=== PATIENT | female | born 1960 | race African-American/Black ===

== ENCOUNTER 2023-04-06 02:36 | Observation (INO) | payer MEDICARE, OTHER ==
[2023-04-06 03:20] LABS: #Eosinphils 0.2 thou/uL (0.0-0.7); #Monocytes 0.8 thou/uL (0.11-0.59); #Neutrophils 4.9 thou/uL (1.40-6.50); %Basophils 0.3 % (0.0-1.0); %Eosinophils 2.3 % (0.0-10.0); %Monocytes 7.3 % (0.0-10.0); %Neutrophils 47.6 % (42.0-75.0); Hemoglobin 12.4 g/dL (12.0-16.0); Mean Corpuscular HGB CONC 32.2 g/dL (32.0-36.0); Mean Corpuscular Hemoglobin 27.6 pg (27.0-31.0); Mean Corpuscular Volume 85.6 fl (78.0-98.0); Mean Platelet Volume 9.4 fL (7.4-10.4); Platelet Count 281 10x3/uL (130-400); RBC Distribution Width 13.2 % (11.5-14.5); White Blood Cell (WBC) Count 10.3 10x3/uL (4.8-10.8)
[2023-04-06] MEDS ORDERED: Aspirin Chewable 81 MG TAB ONE (03:36)
[2023-04-06] MEDS ORDERED: Nitroglycerin 2% Ointment 1 INCH/1 GM Packet ONE (03:36)
[2023-04-06 03:42] LABS: ALT (SGPT) 7 U/L (8-55); AST (SGOT) 13 U/L (5-34); Albumin 3.9 g/dL (3.5-5.0); Alkaline Phosphatase 97 U/L (40-110); Anion Gap 13 mmol/L (10-20); BUN (Urea Nitrogen) 11 mg/dL (9.8-20.1); Bilirubin, Total 0.2 mg/dL (0.2-1.2); CK (CPK) 77 U/L (29-168); Calc. Creatinine Clearance 0 mL/min (70-130); Calcium 9.6 mg/dL (7.8-10.44); Carbon Dioxide 23 mmol/L (22-29); Chloride 101 mmol/L (98-107); Estimated GFR 64; Globulin 3.2 g/dL (2.4-3.5); Glucose 102 mg/dL (70-105); Lipase 9 U/L (8-78); Potassium 3.6 mmol/L (3.5-5.1); Protein, Total 7.1 g/dL (6.0-8.3); Sodium 133 mmol/L (136-145)
[2023-04-06] MEDS ORDERED: Ondansetron PF 4 MG/2 ML Vial IVP PRN (04:59)
[2023-04-06] MEDS ORDERED: Acetaminophen 325 MG TAB PO PRN (04:59)
[2023-04-06] MEDS ORDERED: Ondansetron ODT 4 MG TAB PO PRN (04:59)
[2023-04-06] MEDS ORDERED: Acetaminophen 650 MG Suppository PR PRN (04:59)
[2023-04-06] MEDS ORDERED: Nitroglycerin 0.4 MG TAB (25 Tab Bottle) SL PRN (04:59)
[2023-04-06] MEDS ORDERED: Morphine 2 MG/ML VIAL SLOW IVP PRN (05:52)
[2023-04-06] MEDS ORDERED: Pantoprazole 40 MG VIAL ONE (06:09)
[2023-04-06 06:38] LABS: Troponin I 0.013 ng/mL (< 0.028)
[2023-04-06 08:36] VITALS: BMI 43.5
[2023-04-06] MEDS ORDERED: Non-Formulary Item 1 EACH (Acetaminophen With Codeine [Acetaminophen-Cod #4 Tablet] 1 EAC PO PRN (08:48)
[2023-04-06] MEDS ORDERED: Cyclobenzaprine 10 MG TAB PO PRN (08:48)
[2023-04-06] MEDS ORDERED: Acetaminophen/Codeine 30-300mg Tablet PO PRN (08:57)
[2023-04-06] MEDS ORDERED: Non-Formulary Item 1 EACH (Gabapentin [Gabapentin] 800 MG Tablet) PO SCH (09:00)
[2023-04-06] MEDS: Gabapentin 400 MG CAP PO SCH ×3 (11:47→19:35)
[2023-04-06] MEDS: Venlafaxine 75 MG TAB PO SCH (11:48)
[2023-04-06] MEDS: Pantoprazole 40 MG VIAL IVP SCH (11:48)
[2023-04-06] MEDS: Aspirin Chewable 81 MG TAB PO SCH (11:48)
[2023-04-06] MEDS: Amlodipine 10 MG TAB PO SCH (11:48)
[2023-04-06] MEDS: Levothyroxine 175 MCG TAB PO SCH (11:48)
[2023-04-06 12:03] LABS: Troponin I Less than 0.010 ng/mL (< 0.028)
[2023-04-06] MEDS ORDERED: Regadenoson 0.4 MG/5 ML SYRINGE ONE (14:47)
[2023-04-06] MEDS ORDERED: Atorvastatin Calcium 40 MG TAB PO SCH (21:00)
[2023-04-07 05:27] LABS: Anion Gap 10 mmol/L (10-20); BUN (Urea Nitrogen) 12 mg/dL (9.8-20.1); Calc. Creatinine Clearance 122 mL/min (70-130); Calcium 9.5 mg/dL (7.8-10.44); Carbon Dioxide 29 mmol/L (22-29); Chloride 103 mmol/L (98-107); Estimated GFR 58; Glucose 108 mg/dL (70-105); Potassium 4.1 mmol/L (3.5-5.1); Sodium 138 mmol/L (136-145)
[2023-04-07] MEDS: Gabapentin 400 MG CAP PO SCH ×2 (08:15→16:12)
[2023-04-07] MEDS: Levothyroxine 175 MCG TAB PO SCH (08:15)
[2023-04-07] MEDS: Amlodipine 10 MG TAB PO SCH (08:15)
[2023-04-07] MEDS: Aspirin Chewable 81 MG TAB PO SCH (08:15)
[2023-04-07] MEDS: Venlafaxine 75 MG TAB PO SCH (08:15)
[2023-04-07] MEDS: Pantoprazole 40 MG VIAL IVP SCH (08:16)
[2023-04-07] MEDS ORDERED: Ipratropium/Albuterol 3 ML NEB NEB PRN (11:32)
[2023-04-07] MEDS ORDERED: Ipratropium/Albuterol 3 ML NEB NEB SCH (12:00)
[2023-04-07 12:06] VITALS: BP 104/63; TEMP 97.9
== END 2023-04-07 17:03 | disposition home health service (06) ==
LOC: ERS 02:36 → ERHOLD 04:23 → EDBD 04:23 → 2SW 07:56
PROVIDERS: ADMIT Student in an Organized Health Care Education/Training Program; ATTEND Family Medicine
DX: R07.9 Chest pain, unspecified (principal); J45.909 Unspecified asthma, uncomplicated; I10 Essential (primary) hypertension; K21.9 Gastro-esophageal reflux disease without esophagitis; E87.1 Hypo-osmolality and hyponatremia; E78.5 Hyperlipidemia, unspecified; E03.9 Hypothyroidism, unspecified; I89.0 Lymphedema, not elsewhere classified; Z79.82 Long term (current) use of aspirin; Z79.899 Other long term (current) drug therapy; Z90.710 Acquired absence of both cervix and uterus; Z79.890 Hormone replacement therapy
CPT/HCPCS: 71045; 78452; 80048; 80053; 82550; 83690; 83880; 84484 ×2; 85025; 93005; 93017; 94640; 94760; 96374; 99285; A9500; 36415; 96376; C9113; G0378; J2785; J7620

== ENCOUNTER 2024-10-24 13:36 | Emergency (ER) | payer MEDICARE | END 2024-10-24 16:20 | disposition home or self-care (01) | LOC: ERS 13:36 | DX: R05.1 Acute cough (principal); R06.2 Wheezing; I10 Essential (primary) hypertension | CPT/HCPCS: 71045; 87428 ==

== ENCOUNTER 2024-11-21 13:18 | Emergency (ER) | payer MEDICARE ==
[2024-11-21 13:46] LABS: #Basophils 0.04 10x3/uL (0.0-0.2); %Basophils 0.5 % (0.0-1.0); %Eosinophils 2.5 % (0.0-10.0); %Lymphocytes 47.6 % (21.0-51.0); %Monocytes 10.6 % (0.0-10.0); %Neutrophils 38.6 % (42.0-75.0); Hematocrit 36.5 % (36.0-47.0); Hemoglobin 11.9 g/dL (12.0-16.0); Mean Corpuscular HGB CONC 32.6 g/dL (32.0-36.0); Mean Corpuscular Hemoglobin 27.6 pg (27.0-31.0); Mean Corpuscular Volume 84.7 fL (78.0-98.0); Mean Platelet Volume 8.9 fL (7.4-10.4); Platelet Count 253 10x3/uL (130-400); RBC Distribution Width 14.2 % (11.5-14.5); Red Blood Cell (RBC) Count 4.31 mill/uL (4.20-5.40)
[2024-11-21 14:10] LABS: ALT (SGPT) Less than 7 U/L (Less than 34); AST (SGOT) 19 U/L (11-34); Albumin 3.6 g/dL (3.1-4.5); Alkaline Phosphatase 112 U/L (40-110); Anion Gap 16 mmol/L (10-20); BUN (Urea Nitrogen) 12 mg/dL (9.8-20.1); Bilirubin, Total 0.3 mg/dL (0.3-1.2); Calc. Creatinine Clearance 0 mL/min (70-130); Carbon Dioxide 23 mmol/L (23-31); Chloride 103 mmol/L (98-107); Estimated GFR 63; Globulin 3.5 g/dL (2.4-3.5); Glucose 100 mg/dL (80-115); Potassium 3.5 mmol/L (3.5-5.1); Protein, Total 7.1 g/dL (5.8-8.1); Sodium 138 mmol/L (136-145)
[2024-11-21 14:13] LABS: Troponin I 0.014 ng/mL (< 0.028)
[2024-11-21] MEDS ORDERED: methylPREDNISolone Sod Succ/PF 125 MG/2 ML VIAL ONE (15:52)
[2024-11-21] MEDS ORDERED: Ipratropium/Albuterol 3 ML NEB ONE (16:02)
== END 2024-11-21 17:00 | disposition home or self-care (01) ==
LOC: ERS 13:18
DX: J45.901 Unspecified asthma with (acute) exacerbation (principal); R07.2 Precordial pain; I10 Essential (primary) hypertension; E03.9 Hypothyroidism, unspecified; E78.5 Hyperlipidemia, unspecified; Z79.899 Other long term (current) drug therapy; Z98.890 Other specified postprocedural states
CPT/HCPCS: 71045; 80053; 84484; 85025; 85379; 87428; 93005; 93971; 94640; 94760; 96374; 99285; J2919; 36415; J7620

== ENCOUNTER 2025-06-01 09:02 | Emergency (ER) | payer MEDICARE, OTHER ==
[2025-06-01 11:19] LABS: #Basophils 0.03 10x3/uL (0.0-0.2); #Eosinophils 0.09 10x3/uL (0.0-0.7); #Monocytes 0.65 10x3/uL (0.11-0.59); #Neutrophils 4.70 10x3/uL (1.40-6.50); %Basophils 0.3 % (0.0-1.0); %Eosinophils 1.0 % (0.0-10.0); %Lymphocytes 36.1 % (21.0-51.0); %Monocytes 7.6 % (0.0-10.0); %Neutrophils 54.8 % (42.0-75.0); Hematocrit 37.7 % (36.0-47.0); Hemoglobin 12.0 g/dL (12.0-16.0); Mean Corpuscular Hemoglobin 27.2 pg (27.0-31.0); Mean Corpuscular Volume 85.5 fL (78.0-98.0); Platelet Count 284 10x3/uL (130-400); Red Blood Cell (RBC) Count 4.41 mill/uL (4.20-5.40); White Blood Cell (WBC) Count 8.59 10x3/uL (4.8-10.8)
[2025-06-01 11:53] LABS: ALT (SGPT) 9 U/L (Less than 34); AST (SGOT) 21 U/L (11-34); Albumin 3.6 g/dL (3.1-4.5); Alkaline Phosphatase 85 U/L (40-110); Anion Gap 12 mmol/L (10-20); BUN (Urea Nitrogen) 15 mg/dL (9.8-20.1); Bilirubin, Total 0.3 mg/dL (0.3-1.2); Calc. Creatinine Clearance 0 mL/min (70-130); Calcium 8.6 mg/dL (7.8-10.44); Carbon Dioxide 26 mmol/L (23-31); Chloride 105 mmol/L (98-107); Globulin 3.4 g/dL (2.4-3.5); Glucose 102 mg/dL (80-115); Potassium 3.9 mmol/L (3.5-5.1); Sodium 139 mmol/L (136-145)
[2025-06-01 11:54] LABS: Troponin I Less than 0.010 ng/mL (< 0.028)
== END 2025-06-01 13:07 | disposition home or self-care (01) ==
LOC: ERS 09:02
DX: R60.0 Localized edema (principal); J45.909 Unspecified asthma, uncomplicated; I10 Essential (primary) hypertension; E78.5 Hyperlipidemia, unspecified; E03.9 Hypothyroidism, unspecified; Z79.890 Hormone replacement therapy; Z79.51 Long term (current) use of inhaled steroids; Z79.899 Other long term (current) drug therapy
CPT/HCPCS: 71045; 80053; 83880; 84484; 85025; 93970